=== PATIENT | female | born 1980 | race Caucasian/White ===

== ENCOUNTER → 2018-11-16 | Outpatient (CLI) | payer OTHER ==
[2018-11-16 17:48] LABS: BASOPHILS ABSOLUTE AUTO 0.03 K/mm3 (0.00-0.23); BASOPHILS PERCENT AUTO 0 % (0-2); EOSINOPHILS ABSOLUTE AUTO 0.09 K/mm3 (0.00-0.68); EOSINOPHILS PERCENT AUTO 1 % (0-6); Hematocrit 41.4 % (33.0-51.0); Hemoglobin 14.2 g/dL (11.5-16.0); IMMATURE GRAN ABSOLUTE AUTO 0.05 K/mm3 (0.00-0.10); IMMATURE GRAN PERCENT AUTO 1 % (0-1); LYMPHOCYTES ABSOLUTE AUTO 2.17 K/mm3 (0.84-5.20); LYMPHOCYTES PERCENT AUTO 23 % (21-46); MONOCYTES ABSOLUTE AUTO 0.65 K/mm3 (0.16-1.47); MONOCYTES PERCENT AUTO 7 % (4-13); Mean Corpuscular HGB 29.3 pg (26.0-34.0); Mean Corpuscular HGB Conc 34.3 g/dL (31.5-36.5); Mean Corpuscular Volume 86 fL (80-100); Mean Platelet Volume 10.4 fL (9.1-12.4); NEUTROPHILS ABSOLUTE AUTO 6.43 K/mm3 (1.96-9.15); NEUTROPHILS PERCENT AUTO 68 % (41-73); Platelet Count 279 K/mm3 (150-400); RDW Coefficient Variation 13.2 % (11.7-14.2); RDW Standard Deviation 40.5 fL (35.1-46.3); Red Blood Cell Count 4.84 M/mm3 (3.80-5.20); White Blood Cell Count 9.42 K/mm3 (4.00-11.30)
[2018-11-16 17:56] LABS: Alanine Aminotransfer (ALT/SGP 19 U/L (12-78); Albumin, Blood 3.4 g/dL (3.4-5.0); Alk Phos 82 U/L (40-126); Anion Gap 10 mmol/L (6-16); Aspartate Aminotrans (AST/SGOT 18 U/L (12-37); Bilirubin, Total 0.2 mg/dL (0.1-1.0); Blood Urea Nitrogen 15 mg/dL (8-24); Bun/Creatinine Ratio 21.7 (12.0-20.0); CO2, Blood 25 mmol/L (21-32); Calcium, Blood 9.2 mg/dL (8.5-10.1); Chloride, Blood 106 mmol/L (98-108); Creatinine, Blood 0.69 mg/dL (0.40-1.00); Globulin, Blood 3.4 g/dL (2.2-4.0); Glomerular Filtration Rate >60 (60-); Glucose, Blood 100 mg/dL (70-99); Potassium, Blood 4.1 mmol/L (3.5-5.5); Sodium, Blood 141 mmol/L (136-145); Total Protein, Blood 6.8 g/dL (6.4-8.2)
== END | disposition home or self-care (01) ==
LOC: LAB SHORT 17:39 → LAB EV 17:39
PROVIDERS: Physician Assistant
DX: E28.2 Polycystic ovarian syndrome (principal)
CPT/HCPCS: 80053; 83036; 85025

== ENCOUNTER → 2018-12-31 | Outpatient (CLI) | payer OTHER | END | disposition home or self-care (01) | LOC: LAB SHORT 17:10 → LAB 17:10 | DX: R35.0 Frequency of micturition (principal) | CPT/HCPCS: 87086 ==

== ENCOUNTER → 2019-04-01 | Outpatient (CLI) | payer OTHER | END | disposition home or self-care (01) | LOC: LAB SHORT 17:30 → LAB 17:30 | DX: R50.9 Fever, unspecified (principal) | CPT/HCPCS: 87077; 87086; 87186 ==

== ENCOUNTER → 2020-04-14 | Outpatient (CLI) | payer OTHER ==
[2020-04-15 15:11] LABS: HPV 16 Negative (Negative); HPV 18 Negative (Negative); HPV OTHER HR TYPES Negative (Negative)
== END | disposition home or self-care (01) ==
LOC: PLD 12:00 → LAB SHORT 12:00
PROVIDERS: Obstetrics & Gynecology
DX: Z01.419 Encounter for gynecological examination (general) (routine) without abnormal findings (principal)
CPT/HCPCS: 87624; G0123

== ENCOUNTER → 2021-06-04 | Outpatient (CLI) | payer OTHER ==
[2021-06-04 13:21] LABS: Source, Urine Clean Catch
[2021-06-04 15:56] LABS: Appearance, Urine Cloudy (Clear); Bilirubin, Urine Neg (Neg); Blood, Urine 2+ (Neg); Color, Urine Yellow (P-Yellow); Glucose Qualitative, Urine Neg (Neg); Ketones, Urine Neg (Neg); Leukocyte Esterase, Urine 3+ (Neg); Nitrite, Urine Pos (Neg); Protein, Urine 1+ (Neg); Specific Gravity, Urine 1.025 (1.003-1.022); Urobilinogen, Urine NORM (Normal)
[2021-06-04 16:31] LABS: Amorphous Light (0-Heavy); Bacteria Many /hpf; Squamous Epithelial Cells Many /hpf (Few)
[2021-06-05 13:19] LABS: Candida species (DNA Probe) Negative (NEGATIVE); G. vaginalis (DNA Probe) Positive (NEGATIVE); T. vaginalis (DNA Probe) Negative (NEGATIVE)
== END | disposition home or self-care (01) ==
LOC: LAB SHORT 13:01
PROVIDERS: Obstetrics & Gynecology
DX: N89.8 Other specified noninflammatory disorders of vagina (principal); R35.0 Frequency of micturition
CPT/HCPCS: 81001; 87086; 87480; 87510; 87660

== ENCOUNTER → 2024-01-19 | Outpatient (CLI) | payer OTHER | END | disposition home or self-care (01) | LOC: LAB 14:49 → LAB SHORT 14:49 | DX: N39.0 Urinary tract infection, site not specified (principal) | CPT/HCPCS: 87077; 87086; 87186 ==

== ENCOUNTER → 2024-05-24 | Outpatient (CLI) | payer OTHER | LOC: LAB SHORT 14:45 | DX: R39.9 Unspecified symptoms and signs involving the genitourinary system (principal) | CPT/HCPCS: 87077; 87086; 87186 ==

== ENCOUNTER → 2024-08-09 | Outpatient (CLI) | payer OTHER | LOC: LAB 16:20 → LAB SHORT 16:20 | DX: N39.0 Urinary tract infection, site not specified (principal) | CPT/HCPCS: 87077; 87086; 87147; 87186 ==